=== PATIENT | female | born 1995 | race Caucasian/White ===

== ENCOUNTER → 2016-12-07 | Outpatient (CLI) | payer MEDICAID ==
[~2016-12-07] MED LIST: DARU1TAB2 PO; DOLU1TAB PO; EMTR1TAB5 PO; FERR325T20 PO; METR500T10 PO; PREN1CAP PO; VALT500T PO; ZANT150T2 PO; ZOFR4TAB3 SL
== END ==
LOC: HPND 09:10
PROVIDERS: ATTEND Obstetrics & Gynecology
DX: O35.3XX0 Maternal care for (suspected) damage to fetus from viral disease in mother, not applicable or unspecified (principal); O09.32 Supervision of pregnancy with insufficient antenatal care, second trimester; O98.712 Human immunodeficiency virus [HIV] disease complicating pregnancy, second trimester; O34.212 Maternal care for vertical scar from previous cesarean delivery; Z3A.20 20 weeks gestation of pregnancy
CPT/HCPCS: 76811

== ENCOUNTER → 2017-01-25 | Outpatient (CLI) | payer MEDICAID | LOC: HPND 14:05 | PROVIDERS: ATTEND Obstetrics & Gynecology | DX: O34.219 Maternal care for unspecified type scar from previous cesarean delivery (principal); O09.32 Supervision of pregnancy with insufficient antenatal care, second trimester; O98.712 Human immunodeficiency virus [HIV] disease complicating pregnancy, second trimester; O99.332 Smoking (tobacco) complicating pregnancy, second trimester; Z3A.00 Weeks of gestation of pregnancy not specified | CPT/HCPCS: 76816 ==

== ENCOUNTER 2017-03-02 21:12 | Observation (INO) | payer MEDICAID ==
[~2017-03-02] VITALS: Ht 144.8 cm; Wt 51.7 kg
[~2017-03-02 21:12] MED LIST changes: -DOLU1TAB PO; -FERR325T20 PO; -METR500T10 PO; -VALT500T PO; -ZOFR4TAB3 SL
[2017-03-02 22:00] VITALS: RESP 18
[2017-03-02] MEDS ORDERED: ALUMINUM/MAGNESIUM/SIMETH 30 ML CUP PO PRN (22:15)
[2017-03-02] MEDS ORDERED: SODIUM CHLORIDE 0.9% FLUSH 10 ML FLUSH IV FLUSH PRN (22:15)
[2017-03-02] MEDS ORDERED: ONDANSETRON HCL 4 MG/2 ML VIAL IV PRN (22:15)
[2017-03-02] MEDS ORDERED: ZOLPIDEM TARTRATE 5 MG TAB PO PRN (22:15)
[2017-03-02] MEDS ORDERED: ACETAMINOPHEN 325 MG TAB PO PRN (22:15)
[2017-03-02 22:41] LABS: AMPHETAMINE, URINE NEG (NEG); BARBITURATES, URINE NEG (NEG); COCAINE, URINE NEG (NEG)
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
[2017-03-02] MEDS: DARUNAVIR 800 MG TAB PO ONE (22:45)
[2017-03-02 22:53] VITALS: BP 100/57
[2017-03-02 22:54] VITALS: PULSE 85; RESP 18
[2017-03-03] VITALS (9 sets, daily range): BP systolic 90–93; BP diastolic 43–54; PULSE 69–81; RESP 18; TEMP 97.4–98.1
[2017-03-03] MEDS ORDERED: DOLU1TAB PO (00:11)
[2017-03-03] MEDS ORDERED: DOLUTEGRAVIR SODIUM 50 MG TAB PO SCH (01:11)
[2017-03-03] MEDS ORDERED: EMTRICITABINE/TENOFOVIR 200 MG/300 MG TAB PO SCH (01:21)
[2017-03-03] MEDS ORDERED: DARUNAVIR 800 MG TAB PO SCH (01:22)
[2017-03-03] MEDS ORDERED: RITONAVIR 100 MG TAB PO SCH (01:24)
[2017-03-03] MEDS: DARUNAVIR 800 MG TAB PO ONE (02:04)
[2017-03-03 05:18] LABS: AUTOMATED NEUTROPHIL # 6.6 TH/MM3 (1.8-7.7); BASOPHIL % 0.2 % (0.0-2.0); EOSINOPHIL # 0.1 TH/MM3 (0-0.4); EOSINOPHIL % 1.7 % (0.0-4.0); HEMATOCRIT 22.6 % (35.0-46.0); HEMO FLAGS DIFF FINAL; LYMPH % 16.3 % (9.0-44.0); LYMPHOCYTE # 1.4 TH/MM3 (1.0-4.8); MEAN CELL VOLUME 94.9 FL (80.0-100.0); MEAN CORPUSCULAR HEMOGLOBIN 33.3 PG (27.0-34.0); MEAN CORPUSCULAR HGB CONC 35.1 % (32.0-36.0); MONO % 7.1 % (0.0-8.0); NEUT % 74.7 % (16.0-70.0); PLATELET COUNT 151 TH/MM3 (150-450); RED BLOOD COUNT 2.39 MIL/MM3 (4.00-5.30); RED CELL DISTRIBUTION WIDTH 13.8 % (11.6-17.2); WHITE BLOOD COUNT 8.8 TH/MM3 (4.0-11.0)
[2017-03-03] MEDS: metroNIDAZOLE 250 MG TAB PO SCH ×2 (05:52→14:05)
--- NOTE | 2017-03-03 08:13 | PD.OB.ANTE ---
Subjective Interval History No acute issues overnight. Vitals are stable, patient remains afebrile. She has not had a bowel movement yet this morning and denies any gross rectal bleeding. She notes abdominal pain in her LLQ. She denies any changes in appetite, nausea, vomiting, chest pain, shortness of breath, or leg pain. Antepartum ROS: Reports: movement normal, Denies: New complaints, Loss of fluid, Vaginal bleeding, Contractions Objective Vital Signs Vital Signs Date Time Temp Pulse Resp B/P Pulse Ox O2 Delivery O2 Flow Rate FiO2 03/03/17 05:54 18 03/03/17 04:39 18 03/03/17 04:39 69 93/54 03/03/17 04:38 97.9 03/03/17 04:37 75 03/03/17 04:30 18 03/03/17 03:00 18 03/03/17 01:07 97.4 18 03/03/17 01:07 81 90/43 03/02/17 22:54 85 18 03/02/17 22:53 100/57 03/02/17 22:00 18 Lab & Micro Results Test 03/02/17 03/03/17 03/03/17 21:30 04:34 04:36 Urine Opiates Screen NEG Urine Barbiturates Screen NEG Urine Amphetamines Screen NEG Urine Benzodiazepines Screen NEG Urine Cocaine Screen NEG Urine Cannabinoids Screen NEG White Blood Count 8.8 TH/MM3 Red Blood Count 2.39 MIL/MM3 Hemoglobin 7.9 GM/DL Hematocrit 22.6 % Mean Corpuscular Volume 94.9 FL Mean Corpuscular Hemoglobin 33.3 PG Mean Corpuscular Hemoglobin 35.1 % Concent Red Cell Distribution Width 13.8 % Platelet Count 151 TH/MM3 Mean Platelet Volume 8.4 FL Neutrophils (%) (Auto) 74.7 % Lymphocytes (%) (Auto) 16.3 % Monocytes (%) (Auto) 7.1 % Eosinophils (%) (Auto) 1.7 % Basophils (%) (Auto) 0.2 % Neutrophils # (Auto) 6.6 TH/MM3 Lymphocytes # (Auto) 1.4 TH/MM3 Monocytes # (Auto) 0.6 TH/MM3 Eosinophils # (Auto) 0.1 TH/MM3 Basophils # (Auto) 0.0 TH/MM3 CBC Comment DIFF FINAL Differential Comment Blood Type A POSITIVE Band and Hold Date/Time Procedure Status Source Growth 03/02/17 22:05 Herpes Simplex Virus Culture Received Genital Vulva Pending Physical Exam GENERAL: Well-nourished, well-developed patient. CARDIOVASCULAR: Regular rate and rhythm without murmurs, gallops, or rubs. RESPIRATORY: Breath sounds equal bilaterally. No accessory muscle use. ABDOMEN/GI: Abdomen soft, non-tender, non-distended. Fundus: 32 GENITOURINARY: External Genitalia: intact and normal in appearance Cervix: posterior Dilatation: 0 Effacement: 0 Station: -3 Presentation: vertex Membranes: intact Uterine Contractions: none FHT's: Category: I Baseline: 140 Reactive: + Variability: moderate Decels: none EXTREMITIES: No cyanosis or edema, non-tender, without signs of DVT. Assessment and Plan Problem List: (1) GI bleed Status: Acute (2) Primary genital herpes simplex infection Status: Acute (3) Bacterial vaginosis Status: Acute (4) HIV disease affecting Status: Chronic Assessment and Plan 22 year old at 32-3/7 weeks gestation. 1. IUP- Category I tracing, reassuring. Continue routine obstetric care. - OB US this AM 2. Lower GI bleed with LLQ abdominal pain - Anemia with hgb 7.9 - stool studies - H/H Q6H - Protonix 40mg IV daily - Consult GI - Obtain Coags 3. Primary Genital HSV - Valtrex 500mg PO BID - HSV culture pending 4. Bacterial Vaginosis - Flagyl 250mg PO Q8H 5. HIV - viral load undetectable per patient - CD4 count pending - TORCH workup as patient states she had a fever up to 101 at home - Consult Infectious Disease - Continue home medication regimen: Darunavir, Truvada, Rotinavir dw Dr. Davis and Dr. Katelynn Paulino R1 Viridiana Thomas MD R2 Mar 03, 2017 08:13
[2017-03-03] MEDS ORDERED: DOCUSATE SODIUM 100 MG CAP PO SCH ×2 (09:00→12:30)
[2017-03-03] MEDS ORDERED: SODIUM CHLORIDE 0.9% FLUSH 10 ML FLUSH IV FLUSH SCH (09:00)
[2017-03-03] MEDS ORDERED: MULTIVIT/MIN/PREN/FOL AC/IRON PRENATAL TAB PO SCH (09:00)
[2017-03-03] MEDS ORDERED: FERROUS SULFATE 325 MG (65 MG ELEMENTAL IRON) TAB PO SCH (09:00)
[2017-03-03] MEDS ORDERED: PANTOPRAZOLE SODIUM 40 MG VIAL IV SCH (09:00)
[2017-03-03] MEDS ORDERED: valACYclovir HCL 500 MG TAB PO SCH ×2 (09:00)
--- NOTE | 2017-03-03 12:25 | PD.CONS ---
HPI History of Present Illness This is a 22 year old female who is 32 weeks who was transferred from [facility] for evaluation and treatment of rectal bleeding. She has a history of HIV (+)-on HAART therapy and reports that she has an undetectable viral load. She has a prior history of rectal bleeding about 1 year ago, at which time she was evaluated with colonoscopy in [place] and told that it was from "eating the wrong food- crab legs and fish." Her symptoms resolved and she did not have any further problems up until yesterday. She states that she has been constipated. She tries not to strain, but was more constipated than usual yesterday and had to strain to pass a large hard stool. Afterwards, she noted that there was some bright red blood in the toilet. She cannot recall if it was a large amount or small amount. It was not mixed within the stool, but more in the toilet bowel. She had some LLQ discomfort, as well as some rectal pressure prior to moving her bowels, but states that it improved after passing the stool. She has not had any further bleeding. She has nausea , without vomiting. She reports that her appetite has been good. She does not know if she has hemorrhoids. She denies any history of inflammatory bowel disease in herself or other family members. She has not had any further episodes of bleeding other than the one episode yesterday. Her HH on admission was 7.9/22.6. A repeat is pending. She states that she really does not want to undergo a colonoscopy at this time. PFSH Past Medical History HIV, on HAART Herpes, suspected Prior episode rectal bleeding 1 year ago- states she was told it was from eating the "wrong food" Does not recall being told that she has colitis. Past Surgical History Coded Allergies: No Known Allergies (Verified , 02/20/17) Medications Allergies Coded Allergies Type Severity Reaction Last Updated Verified No Known Allergies 02/20/17 Yes Active Scripts Medications Dose Route/Sig Days Date Category Vitafol Ultra 29-0.6-0.4-200 mg ( Vit W/ Fe Polysacch C) 1 Cap Cap 1 Tab PO DAILY 12/05/16 Rx Zantac (Ranitidine HCl) 150 Mg Tab 150 Mg PO BID 12/05/16 Rx Vitafol Ultra 29-0.6-0.4-200 mg ( Vit W/ Fe Polysacch C) 1 Cap Cap 12/05/16 Prezcobix (Darunavir-Cobicistat) 800-150 Mg Tab 1 Tab PO DAILY 12/05/16 Reported Truvada (Emtricitabine-Tenofovir Disoproxil Fumarate) 100-150 Mg Tab 1 Tab PO DAILY 12/05/16 Reported Family History No family hx of colitis, inflammatory bowel disease, cancer. Social History Smokes 1/2 PPD. No ETOH No illicit drug use. Review of Systems Constitutional: COMPLAINS OF: Fatigue Respiratory: DENIES: Cough Cardiovascular: DENIES: Chest pain Gastrointestinal: COMPLAINS OF: Abdominal pain, Bloody stools (Rectal bleeding. ), Constipation, Nausea, DENIES: Black stools, Vomiting Integumentary: DENIES: Abnormal pigmentation Hematologic/lymphatic: DENIES: Bruising Neurologic: DENIES: Headache Psychiatric: DENIES: Confusion GI Exam Vitals I&O Vital Signs Date Time Temp Pulse Resp B/P Pulse Ox O2 Delivery O2 Flow Rate FiO2 03/03/17 09:15 98.1 18 03/03/17 09:14 93/53 03/03/17 05:54 18 03/03/17 04:39 18 03/03/17 04:39 69 93/54 03/03/17 04:38 97.9 03/03/17 04:37 75 03/03/17 04:30 18 03/03/17 03:00 18 03/03/17 01:07 97.4 18 03/03/17 01:07 81 90/43 03/02/17 22:54 85 18 03/02/17 22:53 100/57 03/02/17 22:00 18 Laboratory Test 03/02/17 03/03/17 03/03/17 21:30 04:34 04:36 Urine Opiates Screen NEG Urine Barbiturates Screen NEG Urine Amphetamines Screen NEG Urine Benzodiazepines Screen NEG Urine Cocaine Screen NEG Urine Cannabinoids Screen NEG White Blood Count 8.8 TH/MM3 Red Blood Count 2.39 MIL/MM3 Hemoglobin 7.9 GM/DL Hematocrit 22.6 % Mean Corpuscular Volume 94.9 FL Mean Corpuscular Hemoglobin 33.3 PG Mean Corpuscular Hemoglobin 35.1 % Concent Red Cell Distribution Width 13.8 % Platelet Count 151 TH/MM3 Mean Platelet Volume 8.4 FL Neutrophils (%) (Auto) 74.7 % Lymphocytes (%) (Auto) 16.3 % Monocytes (%) (Auto) 7.1 % Eosinophils (%) (Auto) 1.7 % Basophils (%) (Auto) 0.2 % Neutrophils # (Auto) 6.6 TH/MM3 Lymphocytes # (Auto) 1.4 TH/MM3 Monocytes # (Auto) 0.6 TH/MM3 Eosinophils # (Auto) 0.1 TH/MM3 Basophils # (Auto) 0.0 TH/MM3 CBC Comment DIFF FINAL Differential Comment Blood Type A POSITIVE Band and Hold Date/Time Procedure Status Source Growth 03/02/17 22:05 Herpes Simplex Virus Culture Received Genital Vulva Pending Physical Examination HEENT: Normocephalic; atraumatic; no jaundice. CHEST: CTA. CARDIAC: RRR. ABDOMEN: Soft, nondistended, NONtender; no hepatosplenomegaly; bowel sounds are present in all four quadrants. EXTREMITIES: No clubbing, cyanosis, or edema. SKIN: Normal; no rash; no jaundice. GRAIN ELEVATOR CLERK: No focal deficits; alert and oriented times three. Assessment and Plan Plan ASSESSMENT: - Rectal bleeding. C/O constipation, had to strain to pass large hard bowel movement and afterwards noticed bright red blood in the toilet- none mixed within the stool. She had associated LLQ discomfort and rectal pressure prior to passing the stool, but states it improved afterwards. She has not had any further episodes. Of note, she did have rectal bleeding ~1 year ago and was evaluated with colonoscopy in [place]. She reports that she was told that it was related to "eating the wrong foods" but does not recall being told that she had colitis. She denies any hx of IBD. + Constipation. She would like to avoid colonoscopy. Likely this is related to straining to pass stool/hemorrhoids. Recommend stool softener and Miralax. If significant drop in hgb or further bleeding, will consider endoscopic evaluation. - Anemia. 7.9.6. Rpt. pending. Unclear what her baseline is. - Constipation. Has been having more issues with this and straining. Add colace/miralax - IUP, 32 weeks - Suspected Herpes outbreak. HSV I/II pending. PLAN: - FLORENTIN - Colace 100mg po BID - Miralax 17 gram po daily - Cont. Ferrous sulfate - Monitor HH - Transfuse as necessary - Pt would like to hold on colonoscopy. She only had the one episode and it occurred after being constipated and straining to pass a large hard stool. This is likely a hemorrhoidal bleed, but she has not had any episodes since passing the large stool. Will monitor HH and for bleeding. If significant drop in hgb or persistent bleeding, will rediscuss colonoscopy - Pt seen and examined by Dr. Stokes and myself and this note is written on his behalf Mary Baez Mar 03, 2017 12:25
[2017-03-03] MEDS ORDERED: POLYETHYLENE GLYCOL 17 GM PKG PO SCH (12:30)
[2017-03-03 13:25] LABS: APTT (PATIENT) 23.5 SEC (24.3-30.1); INTERNATIONAL NORMALIZED RATIO 0.9 RATIO; PROTHROMBIN TIME - PATIENT 9.9 SEC (9.8-11.6)
[2017-03-03 13:51] LABS: ALT (GPT) 10 U/L (10-53); ANION GAP 8 MEQ/L (5-15); AST (GOT) 11 U/L (15-37); BICARBONATE 21.6 MEQ/L (21.0-32.0); BLOOD UREA NITROGEN 6 MG/DL (7-18); CHLORIDE 110 MEQ/L (98-107); GLOMERULAR FILTRATION RATE 105 ML/MIN (>89); POTASSIUM 3.4 MEQ/L (3.5-5.1); SODIUM (NA) 140 MEQ/L (136-145)
[2017-03-03 13:53] LABS: ALKALINE PHOSPHATASE 69 U/L (45-117); TOTAL BILIRUBIN ADULT 0.3 MG/DL (0.2-1.0)
[2017-03-03 14:00] LABS: REVIEW FLAG FINAL
[2017-03-03] MEDS ORDERED: VALT500T PO (14:40)
[2017-03-03] MEDS ORDERED: METR500T10 PO (14:40)
[2017-03-03] MEDS ORDERED: FERR325T20 PO (14:40)
--- NOTE | 2017-03-03 14:41 | HHI.DCPOC ---
Discharge Care Plan Diagnosis: (1) Bacterial vaginosis (2) Primary genital herpes simplex infection (3) HIV disease affecting Report Symptoms to Your Doctor -Temperature above 100.5 degrees -Redness, of incision or excessive or foul smelling drainage -Unusual pain or calf pain -Increased vaginal bleeding -Painful or difficulty urinating -Feelings of extreme sadness or anxiety after 2 weeks Goals to Promote Your Health * To prevent worsening of your condition and complications * To maintain your health at the optimal level Directions to Meet Your Goals Take your medications as prescribed Follow your dietary instruction Follow activity as directed Ensure plenty of rest for recovery Drink fluids for hydration Keep your appointments as scheduled Take your immunizations and boosters as scheduled If your symptoms worsen call your PCP, if no PCP go to Urgent Care Center or Emergency Room Smoking is Dangerous to Your Health. Avoid second hand smoke Call the 24-hour crisis hotline for domestic abuse at Viridiana Thomas MD R2 Mar 03, 2017 14:41
[2017-03-03] MEDS ORDERED: ZOFR4TAB3 SL (15:14)
[2017-03-05 03:51] LABS: CD4/CD8 RATIO 0.7 (0.86-5.00); HSV 2 IGG AB LESS THAN 0.90 INDEX (())
[2017-03-08 08:57] LABS: TOXOPLASMA IGM AB <8.00 (NEGATIVE)
[2017-03-08 08:59] LABS: RUBELLA IGG 1.81 index
[2017-03-09 07:27] LABS: BATH SALTS (MDPV) UR NEG (NEG); ECSTASY (MDMA) UR NEG (NEG); GABAPENTIN UR NEG (NEG); HEROIN (6-ACETYLMORPHINE) UR NEG (NEG); HYDROMORPHONE U NEG (NEG); K2 SPICE UR NEG (NEG); OBMETHADONE UR NEG (NEG); OXYCODONE (PERCODAN) NEG (NEG); PHENCYCLIDINE URINE NEG (NEG)
== END 2017-03-03 16:50 | disposition home or self-care (01) ==
LOC: HOBED 21:12 → H2EB 22:23
PROVIDERS: ADMIT Obstetrics & Gynecology Maternal & Fetal Medicine; ATTEND Obstetrics & Gynecology Maternal & Fetal Medicine
DX: O26.893 Other specified pregnancy related conditions, third trimester (principal); K92.2 Gastrointestinal hemorrhage, unspecified; O98.713 Human immunodeficiency virus [HIV] disease complicating pregnancy, third trimester; O23.593 Infection of other part of genital tract in pregnancy, third trimester; O99.013 Anemia complicating pregnancy, third trimester; O98.313 Other infections with a predominantly sexual mode of transmission complicating pregnancy, third trimester; A60.00 Herpesviral infection of urogenital system, unspecified; R42 Dizziness and giddiness; R11.2 Nausea with vomiting, unspecified; K59.00 Constipation, unspecified; O99.333 Smoking (tobacco) complicating pregnancy, third trimester; Z3A.32 32 weeks gestation of pregnancy; Z79.899 Other long term (current) drug therapy
CPT/HCPCS: 76816; 80053; 80307; 85014; 85018; 85025; 85610; 85730; 86355; 86357; 86359; 86360; 86644; 86695; 86696; 86762; 86777; 86778; 86900; 86901; 87015; 87255; 99285; C9113; G0378; G0481; J2405

== ENCOUNTER 2017-04-19 11:14 | Inpatient (IN) | payer MEDICAID ==
[~2017-04-19] VITALS: Ht 144.8 cm; Wt 57.0 kg
[~2017-04-19 11:14] MED LIST changes: +FERR325T20 PO; +METR500T10 PO; +VALT1TAB PO; +VALT500T PO; +ZOFR4TAB3 SL
[2017-04-20] VITALS (37 sets, daily range): BP systolic 87–139; BP diastolic 39–72; PULSE 62–87; RESP 16–20; TEMP 97.1–97.9; O2SAT 99–100
[2017-04-20] MEDS ORDERED: LACTATED RINGER'S 1000 ML INJ 1,000 ML IV ONE (11:21)
[2017-04-20] MEDS ORDERED: ZIDOVUDINE IV SCH ×2 (11:30)
[2017-04-20] MEDS ORDERED: WATER IV SCH ×2 (11:30)
[2017-04-20] MEDS ORDERED: DEXTROSE 5% IV SCH ×2 (11:30)
--- NOTE | 2017-04-20 11:40 | HHI.HP ---
HPI Chief Complaint Date Seen: Apr 20, 2017 (Tonio Magaña MD R1) Travel History International Travel<30 Days: No Contact w/Intl Traveler<30Days: No Known Affected Area: No (Tonio Magaña MD R1) History of Present Illness HPI 22 year old at 39/2 with a history of HIV who is coming in today for a repeat . Patient reports no discharge, blood or fluids from vagina today. Notes normal movement. States she is tired today, otherwise no complaints of N/V/F/C chest pain, shortness of breath, changes in urine or bowel function. Para: 2 : 4 Miscarriage: 1 (Tonio Magaña MD R1) History Past Medical History Narrative Medical HIV Genital Herpes (Tonio Magaña MD) Past Surgical History Narrative Surgical (Tonio Magaña MD R1) Family History Family History: Negative (Tonio Magaña MD R1) Social History Alcohol Use: No Tobacco Use: No Substance Abuse: No (Tonio Magaña MD R1) Allergies-Medications (Allergen,Severity, Reaction): Coded Allergies: No Known Allergies (Verified , 03/28/17) Home Meds Active Scripts Valacyclovir (Valtrex)500 Mg [id number] Mg PO BID #60 TAB Ref 4 Prov:Nicki Minor 03/28/17 Valacyclovir (Valtrex)1 Gm Tab1,000 Mg PO DAILY #30 TAB Ref 0 Prov:Charlotte Mascorro 03/22/17 Ondansetron Odt (Zofran Odt)4 Mg Tab4 Mg SL Q8HR PRN (Nausea/Vomiting) #30 TAB Ref 0 Prov:Viridiana Thomas MD, R3 03/03/17 Metronidazole 500 Mg Ohp068 Mg PO BID #14 TAB Ref 0 Prov:Viridiana Thomas MD, R3 03/03/17 Ferrous Sulfate (Ferosul)325 Mg [id number] Mg PO BID #60 TAB Prov:Viridiana Thomas MD, R3 03/03/17 Vit W/ Fe Polysacch C (Vitafol Ultra 29-0.6-0.4-200 mg)1 Cap Cap1 Tab PO DAILY #30 BOTTLE Ref 11 Prov:Nicki Minor 12/05/16 Ranitidine (Zantac)150 Mg Ppv670 Mg PO BID #60 TAB Ref 10 Prov:Francine Minorzeyad GARCIA 12/05/16 Vit W/ Fe Polysacch C (Vitafol Ultra 29-0.6-0.4-200 mg)1 Cap Cap Sample #2 Prov:IvánNicki GARCIA 12/05/16 Reported Medications Darunavir-Cobicistat (Prezcobix)800-150 Mg Tab1 Tab PO DAILY #30 TAB Ref 0 12/05/16 Emtricitabine-Tenofovir Disoproxil Fumarate (Truvada)100-150 Mg Tab1 Tab PO DAILY #30 TAB Ref 0 12/05/16 Review of Systems General / Constitutional: No: Fever, Weight Loss, Chills Eyes: No: Diploplia, Blurred Vision, Visual changes, Pain HENT: No: Headaches, Lightheadedness Cardiovascular: No: Irregular Rhythm, Chest Pain or Discomfort, Syncope Respiratory: No: Cough, Short of Breath, Wheezing Gastrointestinal: No: Nausea, Vomiting, Diarrhea, Abdominal Pain, Constipation , Changes in Bowel Habits Genitourinary: No: Urgency, Frequency, Dysuria, Hematuria Musculoskeletal: No: Weakness, Cramping Skin: No Rash, No Itching Neurologic: No: Weakness, Dizziness, Syncope Psychiatric: No: Anxiety, Depression Endocrine: No: Heat Intolerance, Cold Intolerance (Tonio Magaña MD R1) Physical Exam Narrative GENERAL: Well-nourished, well-developed patient. SKIN: Warm and dry. HEAD: Normocephalic and atraumatic. EYES: No scleral icterus. No injection or drainage. ENT: No nasal drainage noted. Mucous membranes pink. Airway patent. NECK: Supple, trachea midline. No JVD. CARDIOVASCULAR: Regular rate and rhythm without murmurs, gallops, or rubs. RESPIRATORY: Breath sounds equal bilaterally. No accessory muscle use. ABDOMEN/GI: Abdomen soft, non-tender, bowel sounds present, no rebound, no guarding GENITOURINARY: External Genitalia: intact and normal in appearance Dilatation: 0 Effacement: 0 Station: 3 Membranes: intact Uterine Contractions: none FHT's: Category: 1 Baseline: 120 Reactive: yes Variability: moderate Decels: none EXTREMITIES: No cyanosis or edema. BACK: Nontender without obvious deformity. No CVA tenderness. NEUROLOGICAL: Awake and alert. Motor and sensory grossly within normal limits. Five out of 5 muscle strength in all muscle groups. Normal speech. (Tonio Magaña MD R1) Data Data Orders Admit To Inpatient (04/20/17 ) Code Status (04/20/17 11:21) Vital Signs (Adult) .ON ADMISSION (04/20/17 11:21) Activity Oob Ad Corinne (04/20/17 11:21) Heart (04/20/17 11:21) Urinary Catheter Management GIL.Q8H (04/20/17 11:21) ^ Preps (04/20/17 11:21) Scd / Jan / Foot Pump GIL.QSHIFT (04/20/17 11:21) ^ Ultrasound For Locatio (04/20/17 11:21) Diet Npo (04/20/17 Lunch) Lactated Ringer's 1000 Ml Inj (Lr 1000 M (04/20/17 11:21) Lactated Ringer's 1000 Ml Inj (Lr 1000 M (04/20/17 11:51) Citric Acid-Sodium Citrate Liq (Bicitra (04/20/17 13:00) Type And Screen (04/20/17 11:21) Complete Blood Count With Diff (04/20/17 11:21) Urinalysis - C+S If Indicated (04/20/17 11:21) Cefazolin Inj (Ancef Inj) (04/20/17 12:30) Inpatient Certification (04/20/17 ) Specimen To Be Collected PRN (04/20/17 11:21) ^ Call Pharmacy (04/20/17 11:28) Zidovudine Inj (Retrovir Inj) (04/20/17 11:30) (Nf) Darunavir-Cobicistat (Prezcobix) (04/21/17 09:00) (Nf) Emtricitabine-Tenofovir Disoproxil (04/21/17 09:00) (Tonio Magaña MD R1) Assessment/Plan Assessment and Plan 22 year old at 39/2 with history of HIV, Herpes, presents today for , GBS - -Repeat today -AZT per protocol -Category 1 tracing reassuring d/w Dr. Gutierres, Dr. Thomas (Tonio Magaña MD R1) Collaborating MD Comments Discussed with patient that with her viral load "too low to measure" there is no additional improvement with AZT infusion. I discussed this with Dr Hoyt who agree that AZT infusion is not necessary. Patient is concerned that she received AZT infused with her last delivery and that her ID physician mentioned this. I will order the infusion but no additional decrease in maternal transport will be seen. (Ashwini Gutierres MD) Tonio Magaña MD R1 Apr 20, 2017 11:40 Ashwini Gutierres MD Apr 20, 2017 12:13
[2017-04-20] MEDS ORDERED: LACTATED RINGER'S 1000 ML INJ 1,000 ML IV SCH (11:51)
[2017-04-20] MEDS: ACETAMINOPHEN 1000 MG/100 ML VIAL IV SCH ×2 (12:00→22:39)
[2017-04-20 12:14] LABS: AUTOMATED NEUTROPHIL # 11.1 TH/MM3 (1.8-7.7); BASOPHIL % 0.3 % (0.0-2.0); EOSINOPHIL # 0.1 TH/MM3 (0-0.4); EOSINOPHIL % 0.7 % (0.0-4.0); HEMATOCRIT 32.6 % (35.0-46.0); HEMO FLAGS DIFF FINAL; LYMPH % 10.4 % (9.0-44.0); LYMPHOCYTE # 1.4 TH/MM3 (1.0-4.8); MEAN CELL VOLUME 102.4 FL (80.0-100.0); MEAN CORPUSCULAR HEMOGLOBIN 35.1 PG (27.0-34.0); MEAN CORPUSCULAR HGB CONC 34.3 % (32.0-36.0); NEUT % 84.6 % (16.0-70.0); PLATELET COUNT 203 TH/MM3 (150-450); RED BLOOD COUNT 3.18 MIL/MM3 (4.00-5.30); RED CELL DISTRIBUTION WIDTH 15.7 % (11.6-17.2); WHITE BLOOD COUNT 13.1 TH/MM3 (4.0-11.0)
[2017-04-20 12:15] LABS: BACTERIA, URINE MOD /hpf; BLOOD, URINE NEG (NEG); COMMENT (UR) CULTURE INDICATED; CULTURE IF INDICATED CULTURE INDICATED; GLUCOSE,URINE NEG (NEG); KETONE, URINE NEG (NEG); MUCUS URINE FEW /lpf (OCC); NITRITE,URINE NEG (NEG); PH, URINE 6.5 (5.0-8.5); SQUAMOUS EPITHELIAL CELL URINE 12 /hpf (0-5); URINE COLOR YELLOW (YELLW/STRAW)
[2017-04-20] MEDS ORDERED: CITRIC ACID-SODIUM CITRATE LIQ 30 ML UDC PO SCH (13:00)
[2017-04-20] MEDS: DEXTROSE 5% IV SCH ×4 (14:00→19:03)
[2017-04-20] MEDS: ZIDOVUDINE IV SCH ×4 (14:00→19:03)
[2017-04-20] MEDS: WATER IV SCH ×4 (14:00→19:03)
[2017-04-20] MEDS ORDERED: DOLU1TAB PO ×2 (14:30→14:49)
[2017-04-20] MEDS ORDERED: PREN1CAP PO (14:50)
[2017-04-20] MEDS ORDERED: EMTR1TAB5 PO (14:52)
[2017-04-20] MEDS ORDERED: DARUNAVIR COBICISTAT PO SCH (16:00)
[2017-04-20] MEDS ORDERED: EMTRICITABINE/TENOFOVIR 200 MG/300 MG TAB PO SCH (16:00)
[2017-04-20] MEDS ORDERED: DOLUTEGRAVIR SODIUM 50 MG TAB PO SCH (16:00)
[2017-04-20] MEDS ORDERED: ACETAMINOPHEN 1000 MG/100 ML VIAL IV ONE (19:34)
[2017-04-20] MEDS ORDERED: ONDANSETRON HCL 4 MG/2 ML VIAL ONE ×2 (19:34→21:33)
[2017-04-20] MEDS ORDERED: OXYTOCIN 10 UNIT/ML AMP ONE (19:34)
[2017-04-20] MEDS ORDERED: MORPHINE SULFATE PF 5 MG/10 ML VIAL ONE (19:34)
[2017-04-20] MEDS ORDERED: EPIDURAL-DIPHENHYDRAMINE HCL 50 MG CAP PO PRN (19:45)
[2017-04-20] MEDS ORDERED: EPIDURAL-NO SYSTEMIC NARCOTICS PRN (19:45)
[2017-04-20] MEDS ORDERED: EPIDURAL-NALOXONE HCL 0.4 MG/ML AMP IV PRN (19:45)
[2017-04-20] MEDS ORDERED: EPIDURAL-DO NOT ADMINISTER ANTICOAGULANTS PRN (19:45)
[2017-04-20] MEDS ORDERED: EPIDURAL-DIPHENHYDRAMINE HCL 50 MG/ML VIAL IV PUSH PRN (19:45)
[2017-04-20] MEDS ORDERED: DEXAMETHASONE SOD PHOS 4 MG/ML VIAL IV SCH (20:15)
--- NOTE | 2017-04-20 20:36 | PD.OB.DELI ---
Procedure Note Section Procedure Pre Op Diagnosis: (1) Previous delivery affecting , antepartum (2) Tubal ligation status (3) HIV disease affecting (4) 39 weeks gestation of (5) HSV (herpes simplex virus) infection Post Op Diagnosis: Performed by Ashwini Gutierres Procedure: Repeat Low Transverse Sec (with bilateral midsegment salpingectomy) Informed consent obtained: For anesthesia, For procedure Confirmed correct: Patient, Procedure, Time-out taken Anesthesia: Spinal Medication prior to procedure: As documented in eMAR, Antibiotics, IV (AZT infusion) Urinary catheter: Inserted using sterile technique, To dependent drainage Sterile preparation: Duraprep Position: Supine with wedge to left side Operative Features Skin Incision: Pfannenstiel Uterine Incision: Low transverse w/knife / blunt ext Membranes Ruptured: Artificially, Appearance of fluid (clear) Presentation: Occiput anterior Time of : 20:07 Delivery of : Uneventful, Umbilical cord (true knot) : Male One Minute : 8 Five Minute : 8 Weight: 2790 6#2oz Status of infant: Viable, Nursery present Placenta delivered: Intact Medications: Oxytocin Estimated blood loss: 500cc Procedure tolerated: Well Maternal Condition: Stable Condition: Stable Ashwini Gutierres MD Apr 20, 2017 20:36
[2017-04-20] MEDS ORDERED: ACETAMINOPHEN 325 MG TAB PO PRN (20:45)
[2017-04-20] MEDS ORDERED: SODIUM CHLORIDE 0.9% FLUSH 10 ML FLUSH IV FLUSH PRN (20:45)
[2017-04-20] MEDS ORDERED: oxyCODONE/ACETAMINOPHEN 5 MG/325 MG TAB PO PRN (20:45)
[2017-04-20] MEDS ORDERED: SIMETHICONE 80 MG CHEWABLE TAB PO PRN (20:45)
[2017-04-20] MEDS ORDERED: KETOROLAC TROMETHAMINE 60 MG/2 ML (IM) VIAL IM PRN (20:45)
[2017-04-20] MEDS ORDERED: OXYTOCIN 30 UNITS-500ML PREMIX 500 ML IV ONE (20:45)
[2017-04-20] MEDS ORDERED: DOCUSATE SODIUM 50 MG/SENNA 8.6 MG TAB PO PRN (20:45)
[2017-04-20] MEDS ORDERED: SODIUM CHLORIDE 0.9% FLUSH 10 ML FLUSH IV FLUSH SCH (21:00)
[2017-04-20] MEDS ORDERED: LACTATED RINGER'S 1,000 ML BAG IV ONE (21:11)
[2017-04-20] MEDS ORDERED: KETOROLAC TROMETHAMINE 30 MG/ML (IVP) VIAL ONE (21:31)
[2017-04-20] MEDS: ONDANSETRON HCL 4 MG/2 ML VIAL IV PUSH PRN (21:34)
[2017-04-20] MEDS: EMTRICITABINE/TENOFOVIR 200 MG/300 MG TAB PO SCH (22:55)
[2017-04-20] MEDS: DARUNAVIR COBICISTAT PO SCH (22:55)
[2017-04-20] MEDS: DOLUTEGRAVIR SODIUM 50 MG TAB PO SCH (22:55)
[2017-04-21] VITALS (7 sets, daily range): BP systolic 90–107; BP diastolic 54–68; PULSE 59–80; RESP 16–18; TEMP 97.5–98.1; O2SAT 100
[2017-04-21] MEDS ORDERED: LACTATED RINGER'S 1000 ML INJ 1,000 ML IV SCH (01:40)
[2017-04-21] MEDS: ONDANSETRON HCL 4 MG/2 ML VIAL IV PUSH PRN ×3 (04:36→17:48)
[2017-04-21 05:53] LABS: AUTOMATED NEUTROPHIL # 10.2 TH/MM3 (1.8-7.7); BASOPHIL % 0.2 % (0.0-2.0); EOSINOPHIL # 0.1 TH/MM3 (0-0.4); EOSINOPHIL % 0.5 % (0.0-4.0); HEMO FLAGS DIFF FINAL; LYMPH % 12.5 % (9.0-44.0); LYMPHOCYTE # 1.5 TH/MM3 (1.0-4.8); MEAN CELL VOLUME 102.2 FL (80.0-100.0); MEAN CORPUSCULAR HEMOGLOBIN 35.9 PG (27.0-34.0); MEAN CORPUSCULAR HGB CONC 35.2 % (32.0-36.0); MONO % 3.8 % (0.0-8.0); PLATELET COUNT 144 TH/MM3 (150-450); RED BLOOD COUNT 2.84 MIL/MM3 (4.00-5.30); RED CELL DISTRIBUTION WIDTH 15.7 % (11.6-17.2); WHITE BLOOD COUNT 12.2 TH/MM3 (4.0-11.0)
[2017-04-21] MEDS ORDERED: OXYTOCIN 30 UNITS-500ML PREMIX 500 ML IV PRN (06:45)
--- NOTE | 2017-04-21 07:32 | HHI.OB ---
Subjective Remarks Postoperative day # 1 AFVSS overnight. Incision not draining. Decreased lochia. Denies dysuria. No breast tenderness. She is feeding the baby via formula. Appetite good. No nausea or vomiting. Positive flatus/bowel movement. Ambulating well. Denies calf pain or shortness of breath. She is having nausea this morning. Otherwise, she is doing well this morning and has no other complaints. Objective Vitals/I&O Vital Signs Date Time Temp Pulse Resp B/P Pulse Ox O2 Delivery O2 Flow Rate FiO2 04/21/17 04:40 98.0 59 16 04/21/17 04:40 91/60 04/21/17 00:00 59 107/60 04/21/17 00:00 97.9 16 100 04/21/17 00:00 97.9 16 100 04/20/17 22:40 97.1 67 16 101/57 100 04/20/17 21:53 65 18 118/67 99 04/20/17 21:53 97.9 04/20/17 21:41 62 20 100 04/20/17 21:41 112/54 17 21:27 77 139/58 04/20/17 21:27 20 100 04/20/17 21:14 66 16 100 04/20/17 21:13 125/54 17 20:56 110/56 17 20:56 84 20 100 17 20:42 76 20 107/53 17 20:42 97.8 100 17 18:55 65 17 18:55 97.6 17 18:55 63 17 100/72 17/17 18:54 63 87/46 17/17 18:53 62 88/39 04/20/17 18:50 70 17/17 18:45 72 17/17 18:30 17 17/17 18:25 70 04/20/17 18:20 72 17/17 18:15 68 17/17 17:40 68 04/20/17 17:35 71 17/17 17:30 65 17/17 16:40 87 17/17 16:39 103/62 1717 16:39 80 17 8/17/17 16:35 83 04/20/17 16:30 85 04/20/17 14:55 73 04/20/17 14:50 66 04/20/17 14:45 71 04/20/17 14:10 66 94/51 04/20/17 14:10 70 04/20/17 14:05 73 04/20/17 14:00 73 04/20/17 13:55 69 04/20/17 13:50 70 04/20/17 13:45 74 04/20/17 12:00 17 04/20/17 11:55 86 04/20/17 11:50 84 04/20/17 11:45 78 Result Diagram: 04/21/17 0503 Objective Remarks GENERAL: Well-nourished, well-developed patient. CARDIOVASCULAR: Regular rate and rhythm without murmurs, gallops, or rubs. RESPIRATORY: Breath sounds equal bilaterally. No accessory muscle use. ABDOMEN/GI: Abdomen soft, non-tender, bowel sounds present. Incision: Clean, dry and intact. Fundus: Firm, non-tender at umbilicus. GENITOURINARY: Light to moderate bleeding. EXTREMITIES: No cyanosis or edema, non-tender, without signs of DVT. Medications and IVs Current Medications Medications (Trade) Dose Ordered Sig/Bindu Route Start Time Stop Time Status Last Admin (Retrovir Inj/ D5W Inj) 250 ml @ 0 mls/hr CONTINUOUS IV 04/20/17 13:00 04/20/17 19:03 (Truvada 200-300 Mg) 0.5 tab HS PO 04/20/17 21:00 Patient Own Medication PT OWN MED: (Darunavir-Cobicistat... HS PO 04/20/17 21:00 (Lr 1000 ml Inj) 1,000 ml @ 100 mls/hr Q10H IV 04/21/17 01:40 04/21/17 21:39 04/21/17 04:00 (NS Flush) 2 ml BID IV FLUSH 04/20/17 21:00 (NS Flush) 2 ml UNSCH PRN IV FLUSH 04/20/17 20:45 (Mylicon Chew) 80 mg QID PRN PO 04/20/17 20:45 (Tylenol) 650 mg Q6H PRN PO 04/20/17 20:45 (Motrin) 600 mg Q6H PRN PO 04/20/17 20:45 (Toradol Inj) 30 mg Q6H PRN IM 04/20/17 20:45 04/21/17 20:44 04/20/17 21:33 (Percocet 5-325 Mg) 1 tab Q4H PRN PO 04/20/17 20:45 (Percocet 5-325 Mg) 2 tab Q4H PRN PO 04/20/17 20:45 (Deepali-Colace) 2 tab Q12H PRN PO 04/20/17 20:45 (M-M-R Ii Inj) 0.5 ml ONCE ONCE SQ 04/21/17 16:00 04/21/17 16:01 (Boostrix Inj) 0.5 ml ONCE ONCE IM 04/21/17 16:00 04/21/17 16:01 (Zofran Inj) 4 mg Q6H PRN IV PUSH 04/20/17 20:45 04/21/17 04:36 Miscellaneous Information NO SYSTEMIC NARCOTICS TO BE GIVEN FO... UNSCH PRN .XX 04/20/17 19:45 04/21/17 19:44 (Narcan Inj) 0.4 mg UNSCH PRN IV 04/20/17 19:45 04/21/17 19:44 (Benadryl Inj) 25 mg Q6H PRN IV PUSH 04/20/17 19:45 04/21/17 19:44 04/20/17 22:53 (Benadryl) 50 mg Q6H PRN PO 04/20/17 19:45 04/21/17 19:44 Miscellaneous Information ALL NURSING DEPARTMENTS UNSCH PRN .XX 04/20/17 19:45 04/21/17 19:44 Assessment/Plan Assessment and Plan 22 y/o female who is POD# 1 s/p repeat CXN. -HIV positive- continue home medications -Hgb stable at 10.2 -Continue routine care. -Percocet and Motrin PRN pain. -Encouraged OOB. Advised pelvic rest for 6 wks. Will need a f/u appt. in 1 wk for incision check. -Re: ctrl, s/p bilateral tubal ligation -D/c in 1-[address] Gutierres and Dr. Gómez ThomasViridiana E MD, R3 Apr 21, 2017 07:32
[2017-04-21] MEDS ORDERED: NON-FORMULARY DRUG (Emtricitabine-Tenofovir Disoproxil Fumarate (Truvada) 1 TAB) PO SCH (09:00)
[2017-04-21] MEDS ORDERED: EMTRICITABINE/TENOFOVIR 200 MG/300 MG TAB PO SCH (09:00)
[2017-04-21] MEDS ORDERED: DARUNAVIR COBICISTAT PO SCH (09:00)
[2017-04-21] MEDS: IBUPROFEN 600 MG TAB PO PRN ×2 (11:22→17:48)
--- NOTE | 2017-04-21 11:37 | MP ---
cc: SWAPNA JOINER M.D. DATE OF SURGERY 04/20/2017 PREOPERATIVE DIAGNOSIS 1. Previous section, desires repeat. 2. Desires tubal ligation. 3. HIV disease. 4. 39 weeks gestation. 5. Herpes simplex virus POSTOPERATIVE DIAGNOSIS 1. Previous section, desires repeat. 2. Desires tubal ligation. 3. HIV disease. 4. 39 weeks gestation. 5. Herpes simplex virus PROCEDURE A repeat low transverse section without extension with a bilateral mid segment salpingectomy. ESTIMATED BLOOD LOSS 500 cc ANESTHESIA Spinal SURGEON Swapna Joiner MD PATHOLOGY Bilateral tubal segments. MEDICATIONS Ancef 2 grams given preoperatively DRAINS [place] to gravity COUNTS Counts were correct x3. FINDINGS 1. Normal uterus, tubes and ovaries. 2. Clear amniotic fluid. 3. Infant male born at 2008, 's were 8 and 8, weight was 2790 grams which is 6 pounds 2 ounces. 4. True knot was noted in the umbilical cord. DESCRIPTION OF PROCEDURE The patient taken back to the operating room, prepped and draped in the usual fashion, placed in the dorsosupine position. After adequate anesthetic was administered, a Pfannenstiel incision was made through the previous scar and taken down to the fascia. The fascia was nicked in the midline and extended bilaterally, taken off the rectus muscles. The muscles were divided in the midline and the anterior peritoneum was entered, extended superiorly and inferiorly. The vesicouterine peritoneum was taken down and a transverse hysterotomy incision was made bluntly and extended bilaterally. The infant's head was delivered through the operative field. A nuchal cord times one was reduced. The rest of the body was delivered and handed off to the resuscitation team for subsequent clear after a 45-second cord clamping delay. A true knot was noted into the cord. The placenta was noted to be normal, delivered intact spontaneously and the endometrial cavity was curetted with a moist laparotomy sponge. The hysterotomy incision was repaired using running locking #1 chromic suture with good hemostasis at closure. Attention was then directed to the tubes. Paulo grasped the mid segment portion of the tube and a window was made in the mesosalpinx where two #1 chromic sutures were passed and a 2 cm segment was removed. Hemostasis was achieved. The fascia was then closed with a #1 PDS, subcutaneous tissue was made hemostatic with a Bovie and skin was closed with 3-0 Monocryl in subcuticular fashion. The patient tolerated the procedure well. She has taken back to the recovery room in good condition. MD NAOMY Oconnell/AFIA /8:37 PM /11:25 AM
[2017-04-21] MEDS ORDERED: DIPHTH/TETANUS/ACEL PERTUSSIS (BOOSTER) 0.5 ML VIAL/PFS IM ONE (16:00)
[2017-04-21] MEDS ORDERED: MEASLES, MUMPS, RUBELLA VACCINE 0.5 ML VIAL SQ ONE (16:00)
[2017-04-21] MEDS: oxyCODONE/ACETAMINOPHEN 5 MG/325 MG TAB PO PRN ×2 (17:49→22:19)
[2017-04-21] MEDS: DOLUTEGRAVIR SODIUM 50 MG TAB PO SCH (20:37)
[2017-04-21] MEDS: EMTRICITABINE/TENOFOVIR 200 MG/300 MG TAB PO SCH (20:37)
[2017-04-21] MEDS: DARUNAVIR COBICISTAT PO SCH (20:37)
[2017-04-22] MEDS: IBUPROFEN 600 MG TAB PO PRN ×2 (03:54→10:13)
[2017-04-22] MEDS: ONDANSETRON HCL 4 MG/2 ML VIAL IV PUSH PRN (03:58)
[2017-04-22] MEDS: oxyCODONE/ACETAMINOPHEN 5 MG/325 MG TAB PO PRN ×2 (03:58→10:14)
[2017-04-22 08:00] VITALS: BP 98/75; PULSE 74; RESP 17; TEMP 97.8
--- NOTE | 2017-04-22 09:00 | HHI.OB ---
Subjective Post Operative Day: 2 Remarks Postoperative day #2. AFVSS overnight. Incision not draining. HIV-positive continuing Truvada. Decreased lochia. Denies dysuria. No breast tenderness. She is feeding the baby via formula. Appetite good. No nausea or vomiting. Patient has not had bowel movement. Ambulating well. Denies calf pain or shortness of breath. Otherwise, she is doing well this morning and has no other concerns. Objective Vitals/I&O Vital Signs Date Time Temp Pulse Resp B/P Pulse Ox O2 Delivery O2 Flow Rate FiO2 04/21/17 20:45 97.5 04/21/17 20:45 61 18 107/68 04/21/17 17:00 98.1 80 16 90/54 04/21/17 12:30 98.1 68 16 95/65 04/21/17 09:00 60 18 90/58 Result Diagram: 04/21/17 0503 Objective Remarks GENERAL: Well-nourished, well-developed female CARDIOVASCULAR: Regular rate and rhythm without murmurs, gallops, or rubs. RESPIRATORY: Breath sounds equal bilaterally. No accessory muscle use. ABDOMEN/GI: Abdomen soft, non-tender, bowel sounds present. Incision: Clean, dry and intact. Fundus: Firm, non-tender at umbilicus. GENITOURINARY: Light to moderate bleeding. EXTREMITIES: No cyanosis or edema, non-tender, without signs of DVT. Medications and IVs Current Medications Medications (Trade) Dose Ordered Sig/Bindu Route Start Time Stop Time Status Last Admin (Retrovir Inj/ D5W Inj) 250 ml @ 0 mls/hr CONTINUOUS IV 04/20/17 13:00 04/20/17 19:03 (Truvada 200-300 Mg) 0.5 tab HS PO 04/20/17 21:00 04/21/17 20:37 Patient Own Medication PT OWN MED: (Darunavir-Cobicistat... HS PO 04/20/17 21:00 (NS Flush) 2 ml BID IV FLUSH 04/20/17 21:00 (NS Flush) 2 ml UNSCH PRN IV FLUSH 04/20/17 20:45 (Mylicon Chew) 80 mg QID PRN PO 04/20/17 20:45 (Tylenol) 650 mg Q6H PRN PO 04/20/17 20:45 (Motrin) 600 mg Q6H PRN PO 04/20/17 20:45 04/22/17 03:54 (Percocet 5-325 Mg) 1 tab Q4H PRN PO 04/20/17 20:45 04/22/17 03:58 (Percocet 5-325 Mg) 2 tab Q4H PRN PO 04/20/17 20:45 (Deepali-Colace) 2 tab Q12H PRN PO 04/20/17 20:45 (Zofran Inj) 4 mg Q6H PRN IV PUSH 04/20/17 20:45 04/22/17 03:58 Assessment/Plan Assessment and Plan 22 y/o female who is POD# 2 s/p repeat CXN. -HIV positive- continue home medications -Hgb stable at 10.2 -Continue routine care. -Percocet and Motrin PRN pain. -Encouraged OOB. Advised pelvic rest for 6 wks. Will need a f/u appt. in 1 wk for incision check. -Re: ctrl, s/p bilateral tubal ligation -D/c likely today dw Tierra Fuller MD R2 Apr 22, 2017 09:00
[2017-04-22] MEDS ORDERED: OXYC1TAB63 PO (12:13)
[2017-04-22] MEDS ORDERED: IBUP-232 PO (12:13)
--- NOTE | 2017-04-22 12:15 | HHI.DCPOC ---
Discharge Care Plan Diagnosis: (1) care following delivery Report Symptoms to Your Doctor -Temperature above 100.5 degrees -Redness, of incision or excessive or foul smelling drainage -Unusual pain or calf pain -Increased vaginal bleeding -Painful or difficulty urinating -Feelings of extreme sadness or anxiety after 2 weeks Goals to Promote Your Health * To prevent worsening of your condition and complications * To maintain your health at the optimal level Directions to Meet Your Goals Take your medications as prescribed Follow your dietary instruction Follow activity as directed Ensure plenty of rest for recovery Drink fluids for hydration Keep your appointments as scheduled Take your immunizations and boosters as scheduled If your symptoms worsen call your PCP, if no PCP go to Urgent Care Center or Emergency Room Smoking is Dangerous to Your Health. Avoid second hand smoke Call the 24-hour crisis hotline for domestic abuse at Tierra Paulino MD R2 Apr 22, 2017 12:15
[2017-04-22 15:52] LABS: HIV RNA COPIES LESS THAN 20.0 (()); HIV RNA LOG COPIES LESS THAN 1.30 (())
[2017-05-03] MEDS ORDERED: METR-1 PO ×2 (16:04→16:43)
== END 2017-04-22 14:38 | disposition home or self-care (01) | DRG 765 ==
LOC: H2EB 04-20 10:43 → H1EA 04-20 22:12
PROVIDERS: ADMIT Obstetrics & Gynecology Obstetrics; ATTEND Obstetrics & Gynecology Obstetrics
PROC: 10D00Z1 Extraction of Products of Conception, Low, Open Approach (ICD-10-PCS; principal; 2017-04-20)
PROC: 0UB70ZZ Excision of Bilateral Fallopian Tubes, Open Approach (ICD-10-PCS; 2017-04-20)
DX: O98.72 Human immunodeficiency virus [HIV] disease complicating childbirth (principal); O98.32 Other infections with a predominantly sexual mode of transmission complicating childbirth; O34.211 Maternal care for low transverse scar from previous cesarean delivery; A60.00 Herpesviral infection of urogenital system, unspecified; Z21 Asymptomatic human immunodeficiency virus [HIV] infection status; O69.81X0 Labor and delivery complicated by cord around neck, without compression, not applicable or unspecified; O69.2XX0 Labor and delivery complicated by other cord entanglement, with compression, not applicable or unspecified; Z30.2 Encounter for sterilization; Z3A.39 39 weeks gestation of pregnancy; Z37.0 Single live birth
CPT/HCPCS: 76937; 81001; 85025; 86850; 86900; 86901; 87086; 87536; 88302; 90715; J0131; J0690; J1200; J1885; J2274; J2405; J2590; J3010; J3485; J7060; J7120